=== PATIENT | male | born 1960 | race Caucasian/White ===

== ENCOUNTER 2022-05-28 09:21 | Inpatient (IN) | payer BC ==
[~2022-05-28] VITALS: Ht 182.9 cm; Wt 62.6 kg
[2022-05-28 09:24] VITALS: BP_SYST 115
--- NOTE | 2022-05-28 10:32 | NUR ---
Pt presents to the ER bib BLS from Home CC Pain to pelvic floor Pain scale10/10. AAOx4, skin intact, no swelling urinary retention and blood leakage from the penis. Suprapubic in place on 05/25/22 at [facility]. Bag non emptying at this time. PmHx HTN pelvic floor disfunction- Urologist Dr. Riley
--- NOTE | 2022-05-28 10:35 | NUR ---
Patient to ER bed 8 to gown for evaluation. Side rails up. Report given to GITA JOHNSTON.
--- NOTE | 2022-05-28 11:15 | NUR ---
Pt with pt bs for MSE.
--- NOTE | 2022-05-28 11:20 | NUR ---
JMAIE Workman at bedside examining patient.
[2022-05-28] MEDS ORDERED: DIAZEPAM 10 MG/2 ML DISP.SYRIN IM ONE (12:00)
[2022-05-28] MEDS ORDERED: DIAZEPAM 5 MG TABLET (VALIUM) PO ONE ×2 (12:15→14:00)
[2022-05-28] MEDS ORDERED: HYDROmorphone 1 MG/ML INJ. CARTRIDGE IVP ONE ×2 (12:15→14:45)
[2022-05-28 12:30] LABS: BASOPHILS % (AUTO) 0.7 % (0.0-2.0); EOSINOPHILS % (AUTO) 0.6 % (0.0-4.0); HEMATOCRIT 25.7 % (36-54); LYMPHOCYTES # (AUTO) 0.7 K/uL (1.0-5.5); LYMPHOCYTES % (AUTO) 25.6 % (20.5-51.5); MEAN CORPUSCULAR HEMOGLOBIN 19 pg (27-31); MEAN CORPUSCULAR HGB CONC 31 % (32-36); MEAN CORPUSCULAR VOLUME 60 fL (79.0-98.0); MONOCYTES # (AUTO) 0.2 K/uL (0.0-1.0); MONOCYTES % (AUTO) 7.4 % (1.7-9.3); NEUTROPHILS # (AUTO) 1.7 K/uL (1.8-7.7); NEUTROPHILS % (AUTO) 65.7 % (40.0-70.0); PLATELET COUNT (AUTO) 284 K/uL (130-430); RED CELL DISTRIBUTION WIDTH 20.9 % (9.0-15.0); WHITE BLOOD COUNT (AUTO) 2.6 K/uL (4.8-10.8)
[2022-05-28 12:48] LABS: ALANINE AMINOTRANSFERASE 15 U/L (12-78); ANION GAP 9 (5-15); ASPARTATE AMINOTRANSFERASE 25 U/L (10-37); CALCIUM 9.1 mg/dL (8.4-11.0); CHLORIDE 97 mmol/L (98-107); CREATININE 0.74 mg/dL (0.55-1.30); GLUCOSE 85 mg/dL (70-99); POTASSIUM 3.9 mmol/L (3.5-5.1); SODIUM SERUM 135 mmol/L (136-145); TOTAL BILIRUBIN 2.2 mg/dL (0.0-1.0); UREA NITROGEN, BLOOD 20 mg/dL (8-21)
[2022-05-28 12:50] LABS: GFR AFRICAN AMERICAN 138 mL/min (>90)
[2022-05-28 13:21] LABS: BILIRUBIN,URINE NEGATIVE (NEGATIVE); BLOOD, URINE 3+ (NEGATIVE); GLUCOSE,URINE NEGATIVE (NEGATIVE); KETONES,URINE 2+ (NEGATIVE); LEUKOCYTE ESTERASE ,URINE TRACE (NEGATIVE); NITRITE, URINE NEGATIVE (NEGATIVE); PROTEIN URINE 3+ (NEGATIVE)
[2022-05-28 13:24] LABS: CLARITY/URINE CLOUDY (CLEAR); COLOR,URINE RED (YELLOW)
[2022-05-28 13:28] LABS: BACTERIA,URINE FEW /HPF (None Seen); RBC,URINE >100 /HPF (0-3)
[2022-05-28 14:47] LABS: INR 1.1 (0.80-1.20); PROTHROMBIN TIME 11.2 SECS (9.5-12.5)
--- NOTE | 2022-05-28 15:06 | NUR ---
Medicated pt with IVP dilaudid 0.5mg. Pain level 10/10 to lower pelvic/abd region. Pt states that the pain is like any other he has had before and includes pressure like pain. Vital signs stable. Joselin Wood MSN RN
[2022-05-28] MEDS ORDERED: MUPIROCIN 2% TOPICAL OINTMENT 22 GM NS PRN (17:30)
[2022-05-28] MEDS ORDERED: MAGNESIUM SULFATE 50 ML IV PRN (17:30)
[2022-05-28] MEDS ORDERED: ZOLPIDEM TARTRATE 5 MG TABLET PO PRN (17:30)
[2022-05-28] MEDS ORDERED: DOCUSATE SODIUM 100 MG CAPSULE PO PRN (17:30)
[2022-05-28] MEDS ORDERED: POTASSIUM CHLORIDE 20 MEQ TAB.PRT.SR PO PRN (17:30)
[2022-05-28] MEDS ORDERED: ONDANSETRON HCL 4 MG/2 ML VIAL IVP PRN (17:30)
--- NOTE | 2022-05-28 17:49 | NUR ---
Pt states bladder distention feeling pressure in ears and pelvic floor. Bladder is tender to the touch. Pt states 6/10 pain scale. Pt states organs feel "balled up" Repositioned pt in bed and provided pillow and comfort towels.
--- NOTE | 2022-05-28 18:30 | NUR ---
Admit bed requested Patient will be admitted to care of . Admitted to Telemetry unit. Diagnosis Elevated troponin Inpatient (Yes or No) Y Observation (Yes or No) N Orientation concerns or request close to nursing station (Yes or No) Y Covid Status NEG On vent or bipap NO Isolation requirements NO Needs a sitter NO From Home (Yes or if No enter name of facility) YES Requires Dialysis (Yes or No) NO Med Rec Completed (Yes of No) NO
[2022-05-28] MEDS ORDERED: cefTRIAXone 1 GM VIAL ONE (18:50)
[2022-05-28] MEDS: MORPHINE 4 MG INJ. 4 MG/ML VIAL IVP PRN (20:34)
[2022-05-28] MEDS: cefTRIAXone 1 GM in D5W 50 ML IV SCH (20:37)
[2022-05-28] MEDS: LORazepam 2 MG/ML VIAL IVP PRN (20:40)
[2022-05-28] MEDS: NACL 0.9% 1,000 ML IV SCH (20:41)
--- NOTE | 2022-05-28 21:21 | NUR ---
ADMIT NOTE Received pt from ER to the floor with a diagnosis of ELEVATED TROPONIN. Admission process initiated. patient oriented to pain management, safety and call light-teach back done.
[2022-05-28 21:30] VITALS: BP_SYST 125
--- NOTE | 2022-05-28 23:00 | NUR ---
hgb8.0/hct25.7. Per parameter transfuse for hgb Addendum: 05/29/22 at 0759 by [facility] Two insulation installer Hgb 8.0/Hct 25.7, pt vs stable, sb on tele, denies any pain, suprapubic catheter draining with light cola color, no blood clots noted. Per parameter to transfuse 1prbc for hgb<7. Will closely monitor for bleeding.
[2022-05-29 00:56] VITALS: BP_SYST 134
[2022-05-29 04:05] LABS: BASOPHILS % (AUTO) 0.4 % (0.0-2.0); EOSINOPHILS # (AUTO) 0.1 K/uL (0.0-0.4); HEMOGLOBIN 7.2 g/dL (14.0-18.0); LYMPHOCYTES # (AUTO) 0.9 K/uL (1.0-5.5); LYMPHOCYTES % (AUTO) 31.4 % (20.5-51.5); MEAN CORPUSCULAR HEMOGLOBIN 19 pg (27-31); MEAN CORPUSCULAR HGB CONC 31 % (32-36); MEAN CORPUSCULAR VOLUME 60 fL (79.0-98.0); MONOCYTES # (AUTO) 0.2 K/uL (0.0-1.0); MONOCYTES % (AUTO) 8.3 % (1.7-9.3); NEUTROPHILS # (AUTO) 1.6 K/uL (1.8-7.7); NEUTROPHILS % (AUTO) 57.9 % (40.0-70.0); PLATELET COUNT (AUTO) 236 K/uL (130-430); RED BLOOD CELL COUNT(AUTO) 3.85 MIL/uL (4.2-6.2); WHITE BLOOD COUNT (AUTO) 2.8 K/uL (4.8-10.8)
--- NOTE | 2022-05-29 05:20 | NUR ---
PAGED PAGED DOCTOR Jamari HURT FOR CRITICAL
--- NOTE | 2022-05-29 05:33 | NUR ---
[address]ND PAGE FOR DR Jamari HURT
--- NOTE | 2022-05-29 05:43 | NUR ---
PAGED PAGED DOCTOR FORREST
--- NOTE | 2022-05-29 05:45 | NUR ---
[place] and spoke to Dr. Mcdonald. Informed with hgb 7.2/hct 23. vs stable, NSR to SB on tele, no acute distress noted. Order received to transfuse 1 PRBC. Supra pubic bag changed. catheter draining with light cola color urine with red sediments along the tubing.
--- NOTE | 2022-05-29 05:45 | NUR ---
Informed Dr. Mcdonald regarding tropnin 86.
--- NOTE | 2022-05-29 06:00 | NUR ---
Dr. Barrientos called back regarding consult. As per Marisa Botello, informed regarding troponin 86.
--- NOTE | 2022-05-29 06:15 | NUR ---
BT INITIATION: Consent signed BY Mr. Santiago agreeing to administration of blood. Blood has been type and crossmatched. Blood sent from blood bank. Information on unit of blood checked against patient wristband at bedside by two nurses verified by Marisa EASLEY. All information matches. Patient or responsible libertarian informed of potential complications associated with blood transfusion. Informed of possible transfusion reaction symptoms. Aware of need to notify nurse at once of itching, shortness of breath, flushing, feeling of impending doom, or other symptoms not previously present. Vital signs taken within 5 minutes prior to initiation of transfusion. RN will remain with patient for first 15 minutes of transfusion at which time vital signs will be re-assessed.
[2022-05-29] MEDS ORDERED: OXYB5TAB16 PO (07:02)
[2022-05-29] MEDS ORDERED: CYCL10TA24 PO (07:02)
[2022-05-29] MEDS ORDERED: LYR50 PO (07:02)
--- NOTE | 2022-05-29 07:42 | NUR ---
Report received from KAUSHAL Squires for continuity of care. Patient stable. No distress noted.
[2022-05-29 08:00] VITALS: BP_SYST 147
--- NOTE | 2022-05-29 09:06 | NUR ---
blood transfusion finished. Vital signs taken. Patient stable condition. Denies shortness of breath, itchiness, or skin discoloration. Will continue to monitor.
[2022-05-29] MEDS: NACL 0.9% 1,000 ML IV SCH ×2 (09:14→19:51)
[2022-05-29 09:27] VITALS: BP_SYST 138
--- NOTE | 2022-05-29 09:33 | NUR ---
Spoke with Dr. Mcdonald regarding Patient concerns. New orders noted and carried out. Dr. Maldonado, [facility], came to see patient.
[2022-05-29] MEDS ORDERED: DOCUSATE SODIUM 100 MG CAPSULE PO ONE (10:00)
[2022-05-29] MEDS ORDERED: PREGABALIN 25 MG CAPSULE (LYRICA) PO ONE (10:00)
[2022-05-29] MEDS ORDERED: OXYBUTYNIN CHLORIDE 5 MG TABLET PO ONE (10:00)
[2022-05-29 10:27] LABS: TOTAL IRON BIND. CAPACITY 377 ug/dL (250-450)
[2022-05-29] MEDS: CYCLOBENZAPRINE HCL 10 MG TABLET (FLEXERIL) PO PRN (11:11)
[2022-05-29 12:00] VITALS: BP_SYST 139
[2022-05-29 14:39] LABS: BASOPHILS % (AUTO) 0.3 % (0.0-2.0); EOSINOPHILS # (AUTO) 0.1 K/uL (0.0-0.4); EOSINOPHILS % (AUTO) 1.8 % (0.0-4.0); HEMATOCRIT 26.1 % (36-54); HEMOGLOBIN 8.1 g/dL (14.0-18.0); LYMPHOCYTES # (AUTO) 0.6 K/uL (1.0-5.5); LYMPHOCYTES % (AUTO) 18.2 % (20.5-51.5); MEAN CORPUSCULAR HEMOGLOBIN 20 pg (27-31); MEAN CORPUSCULAR HGB CONC 31 % (32-36); MONOCYTES # (AUTO) 0.2 K/uL (0.0-1.0); MONOCYTES % (AUTO) 5.6 % (1.7-9.3); NEUTROPHILS # (AUTO) 2.3 K/uL (1.8-7.7); NEUTROPHILS % (AUTO) 74.1 % (40.0-70.0); PLATELET COUNT (AUTO) 251 K/uL (130-430); RED BLOOD CELL COUNT(AUTO) 4.17 MIL/uL (4.2-6.2); RED CELL DISTRIBUTION WIDTH 23.7 % (9.0-15.0); WHITE BLOOD COUNT (AUTO) 3.1 K/uL (4.8-10.8)
[2022-05-29 14:44] LABS: MEAN CORPUSCULAR VOLUME 63 fL (79.0-98.0)
[2022-05-29 16:00] VITALS: BP_SYST 137
[2022-05-29] MEDS: cefTRIAXone 1 GM in D5W 50 ML IV SCH (19:00)
--- NOTE | 2022-05-29 20:02 | NUR ---
Report given to KAUSHAL Gurrola for continuity of care. Patient stable. Still NPO for procedure. No distress noted at this time.
[2022-05-29 20:32] VITALS: BP_SYST 131
[2022-05-29] MEDS: FERROUS SULFATE 325 MG TABLET.DR PO SCH ×2 (20:36→21:00)
[2022-05-29] MEDS: DOCUSATE SODIUM 100 MG CAPSULE PO SCH ×2 (20:37→21:00)
[2022-05-30 00:20] VITALS: BP_SYST 143
[2022-05-30] MEDS: MORPHINE 4 MG INJ. 4 MG/ML VIAL IVP PRN ×2 (00:57→12:35)
[2022-05-30] MEDS: CYCLOBENZAPRINE HCL 10 MG TABLET (FLEXERIL) PO PRN ×2 (01:48→11:15)
[2022-05-30 07:21] LABS: BASOPHILS % (AUTO) 0.5 % (0.0-2.0); EOSINOPHILS # (AUTO) 0.1 K/uL (0.0-0.4); EOSINOPHILS % (AUTO) 4.4 % (0.0-4.0); HEMATOCRIT 24.8 % (36-54); HEMOGLOBIN 7.8 g/dL (14.0-18.0); LYMPHOCYTES # (AUTO) 0.6 K/uL (1.0-5.5); LYMPHOCYTES % (AUTO) 23.4 % (20.5-51.5); MEAN CORPUSCULAR HEMOGLOBIN 20 pg (27-31); MEAN CORPUSCULAR HGB CONC 31 % (32-36); MEAN CORPUSCULAR VOLUME 63 fL (79.0-98.0); MONOCYTES # (AUTO) 0.3 K/uL (0.0-1.0); MONOCYTES % (AUTO) 10.2 % (1.7-9.3); NEUTROPHILS # (AUTO) 1.7 K/uL (1.8-7.7); NEUTROPHILS % (AUTO) 61.5 % (40.0-70.0); PLATELET COUNT (AUTO) 225 K/uL (130-430); RED BLOOD CELL COUNT(AUTO) 3.97 MIL/uL (4.2-6.2); WHITE BLOOD COUNT (AUTO) 2.8 K/uL (4.8-10.8)
--- NOTE | 2022-05-30 07:40 | NUR ---
OPEN NOTE Patient laying awake in bed. A/O x4 Welsh speaking. Patient has some complaints of bladder spasms. No Distress noted no shortness of breath. IV to LFA 20 gauge on SL. Patient has suprapubic cath draining yellow urine to gravity. All needs met, call light within reach. Safety checks in place. Will continue to monitor.
[2022-05-30 08:04] VITALS: BP_SYST 119
[2022-05-30 08:35] LABS: RED CELL DISTRIBUTION WIDTH 24.2 % (9.0-15.0)
--- NOTE | 2022-05-30 08:43 | NUR ---
MD REPORT Spoke with Dr. Anaya regarding Critical Troponin. MD stated he will be in to see the patient and to give him his schedule medications.
[2022-05-30] MEDS: FERROUS SULFATE 325 MG TABLET.DR PO SCH ×2 (08:57→23:09)
[2022-05-30] MEDS: PREGABALIN 25 MG CAPSULE (LYRICA) PO SCH (08:57)
[2022-05-30] MEDS: OXYBUTYNIN CHLORIDE 5 MG TABLET PO SCH (08:58)
[2022-05-30] MEDS: DOCUSATE SODIUM 100 MG CAPSULE PO SCH ×2 (08:58→23:08)
[2022-05-30] MEDS: NACL 0.9% 1,000 ML IV SCH (10:09)
[2022-05-30 12:05] VITALS: BP_SYST 120
--- NOTE | 2022-05-30 12:05 | NUR ---
Patient rounds. Patient in bed laying down. He is resting but complains of pelvic pain. Flexril was given as ordered by MD Anaya but still no reducation in pain. Morphine given through IVP to help with pain while we get in contact again with DR. Anaya. NO shortness of breath, No distress noted. Hernandez is attached and draining to gravity yellow urine. All needs met, safety measures in place. Will continue to monitor.
--- NOTE | 2022-05-30 12:28 | NUR ---
MD LOZOYA Placed a call to MD Anaya to explain that patient is still having pelvic spasms. wants us to call MD Stephen urologist at this time.
--- NOTE | 2022-05-30 12:38 | NUR ---
ATTENDING MD WEB CONTENT EDITOR DR Zoe DIGGS ORDERED TO NOTIFY UROLOGIST DR PEREZ THAT PT IS SUFFERING FROM PELVIC/BLADDER SPASM. LEFT A VOICE MESSAGE ON HIS CELL.
[2022-05-30] MEDS: LORazepam 2 MG/ML VIAL IVP PRN (13:38)
--- NOTE | 2022-05-30 15:54 | NUR ---
Patient rounds. Patient in bed laying down. He is asleep. NO shortness of breath, No distress noted. Hernandez is attached and draining to gravity yellow urine. All needs met, safety measures in place. Will continue to monitor.
--- NOTE | 2022-05-30 18:34 | NUR ---
CLOSING NOTE Patient resting in bed. No pain noted, No Distress noted no shortness of breath. IV to LFA 20 gauge on SL. Patient has suprapubic cath draining yellow urine to gravity. Collected about 300cc of urine All needs met, call light within reach. Safety checks in place. Will endorse to nightshift nurse.
[2022-05-30] MEDS: cefTRIAXone 1 GM in D5W 50 ML IV SCH (23:09)
[2022-05-31 00:48] VITALS: BP_SYST 131
[2022-05-31] MEDS: NACL 0.9% 1,000 ML IV SCH ×3 (03:55→17:43)
[2022-05-31 08:00] VITALS: BP_SYST 120
--- NOTE | 2022-05-31 08:00 | NUR ---
Initial notes Awake, alert, still complain of pain and spasm on his bladder refused pain medication and claimed that flexeril is not working. denies any shortness of breath. Enc to call for help as needed.
[2022-05-31] MEDS: OXYBUTYNIN CHLORIDE 5 MG TABLET PO SCH (08:18)
[2022-05-31] MEDS: CYCLOBENZAPRINE HCL 10 MG TABLET (FLEXERIL) PO PRN ×2 (08:19→18:57)
[2022-05-31] MEDS: PREGABALIN 25 MG CAPSULE (LYRICA) PO SCH (08:19)
[2022-05-31] MEDS: DOCUSATE SODIUM 100 MG CAPSULE PO SCH ×2 (08:19→20:43)
[2022-05-31] MEDS: FERROUS SULFATE 325 MG TABLET.DR PO SCH ×3 (08:20→20:43)
--- NOTE | 2022-05-31 09:00 | NUR ---
MD Rounds Seen by Dr. Anaya and PA of urologist.
[2022-05-31] MEDS ORDERED: DIATR MEGLU/DIATRIZ SOD 30 ML SOLUTION PO ONE (10:21)
[2022-05-31 12:00] VITALS: BP_SYST 129
--- NOTE | 2022-05-31 12:51 | NUR ---
PT- Pt ordered, per patient he is not walking for days and he feels weak and nt comfortable ambulating at this time. Addendum: 05/31/22 at 1731 by Nirali Temple RN physical therapy ordered
[2022-05-31] MEDS: LORazepam 2 MG/ML VIAL IVP PRN (14:05)
[2022-05-31 16:00] VITALS: BP_SYST 138
--- NOTE | 2022-05-31 17:31 | NUR ---
notes Catheter with yellow output, no bleeding noted.
[2022-05-31] MEDS: cefTRIAXone 1 GM in D5W 50 ML IV SCH (18:58)
[2022-05-31 20:40] VITALS: BP_SYST 141
[2022-06-01 00:05] VITALS: BP_SYST 135
[2022-06-01 08:39] VITALS: BP_SYST 135
[2022-06-01] MEDS ORDERED: FERR-69 PO (08:39)
[2022-06-01] MEDS: FERROUS SULFATE 325 MG TABLET.DR PO SCH (08:42)
[2022-06-01] MEDS: PREGABALIN 25 MG CAPSULE (LYRICA) PO SCH (08:42)
[2022-06-01] MEDS: OXYBUTYNIN CHLORIDE 5 MG TABLET PO SCH (08:43)
[2022-06-01] MEDS: DOCUSATE SODIUM 100 MG CAPSULE PO SCH (08:43)
[2022-06-01 09:24] VITALS: BP_SYST 135
--- NOTE | 2022-06-01 10:17 | NUR ---
PT DISCHARGED HOME. PT IS A/Kelli/TERRANCE4, NO DISTRESS NOTED. SUPRAPUBIC CATHETER INTACT, EMPTIED 200 ML YELLOW CLEAR URINE PRIOR TO DISCHARGE. DISCHARGE INSTRUCTIONS PROVIDED TO PT. ALL QUESTIONS AND CONCERNS ADDRESSED. ALL PT'S BELONGING TAKEN WITH HIM (LAP TOP WITH MANAGER OF OPERATIONS, CELL PHONE WITH MANAGER OF OPERATIONS, CLOTHES, TOILETRIES). Addendum: 06/01/22 at 1020 by [employer] internal corrosion specialist IV SITE ON LEFT FOREARM DISCONTINUED WITH CATHETER INTACT.
== END 2022-06-01 10:17 | disposition home or self-care (01) | DRG 698 ==
LOC: SED 09:21 → STU 14:36
PROVIDERS: ADMIT General Practice; ATTEND General Practice
PROC: 30233N1 Transfusion of Nonautologous Red Blood Cells into Peripheral Vein, Percutaneous Approach (ICD-10-PCS; principal; 2022-05-29)
DX: T83.090A Other mechanical complication of cystostomy catheter, initial encounter (principal); I21.A1 Myocardial infarction type 2; D62 Acute posthemorrhagic anemia; N39.0 Urinary tract infection, site not specified; Z20.822 Contact with and (suspected) exposure to COVID-19; R33.9 Retention of urine, unspecified; D50.9 Iron deficiency anemia, unspecified; Y73.8 Miscellaneous gastroenterology and urology devices associated with adverse incidents, not elsewhere classified; N32.89 Other specified disorders of bladder; Z88.5 Allergy status to narcotic agent; Z88.6 Allergy status to analgesic agent
CPT/HCPCS: 36415; 36430; 76376; 76700-TC; 76770; 80053; 81000; 82607; 82728; 82746; 83540; 83550; 83605; 83735; 84484; 85025; 85610-TC; 85730-TC; 86886; 86900; 86901; 86920; 87040; 87086; 93005; 93306; 96374; 96375; 96376; 99285; G0378; J0696; J1170; J2060; J2270; J7060; P9021; Q9964; Q9967

== ENCOUNTER 2022-06-02 21:09 | Emergency (ER) | payer BC ==
[~2022-06-02] VITALS: Ht 182.9 cm; Wt 73.5 kg
[~2022-06-02 21:09] MED LIST: CYCL10TA24 PO; FERR-69 PO; LYR50 PO; OXYB5TAB16 PO
[2022-06-02 21:27] VITALS: BP_SYST 127
--- NOTE | 2022-06-02 22:29 | NUR ---
Placed in room 07 . Placed on monitor tech, blood pressure machine and pulse oximeter. To gown for exam. Side rails up. Report given to hansa gasca
--- NOTE | 2022-06-02 22:40 | NUR ---
ER Dr. Brito at bedside examining patient.
--- NOTE | 2022-06-02 22:54 | NUR ---
PT BIBA WITH CC OF GENERALIZED ABODMINAL PAIN AND PELVIC PAIN, PT PRESENTS WITH SUPRAPUBIC PALACIO THAT WAS INSERTED BY [facility], AWARE. PT IN BED LOCKED IN LOW POSITION IN STABLE CONDITION, ON DELIVERER MERCHANDISE, VSS,NAD. WILL CONTINUE TO MONITOR.
[2022-06-02] MEDS ORDERED: LORazepam 2 MG/ML VIAL IM ONE (23:15)
--- NOTE | 2022-06-02 23:26 | NUR ---
Zeeshan good in ED - 06/03/22 at 0438 by [email or web address] PT INFORMED ABOUT PAUSING METFORMIN FOR 24HRS, BY SHOE PLANNER.
--- NOTE | 2022-06-03 00:50 | NUR ---
PATIENT REQUESTING PAIN MEDICATION. NOTIFIED. DR. AUSTIN AT BEDSIDE DISCUSSING POC.
[2022-06-03] MEDS ORDERED: HYDROmorphone 1 MG/ML INJ. CARTRIDGE IVP ONE (01:00)
[2022-06-03 01:28] LABS: CALCIUM 8.4 mg/dL (8.4-11.0); CREATININE 0.89 mg/dL (0.55-1.30); POTASSIUM 3.3 mmol/L (3.5-5.1)
[2022-06-03 01:32] LABS: ALBUMIN 3.3 g/dL (3.4-4.8); TOTAL BILIRUBIN 0.9 mg/dL (0.0-1.0)
[2022-06-03 02:15] LABS: BILIRUBIN,URINE NEGATIVE (NEGATIVE); BLOOD, URINE 3+ (NEGATIVE); CLARITY/URINE CLEAR (CLEAR); COLOR,URINE YELLOW (YELLOW); GLUCOSE,URINE NEGATIVE (NEGATIVE); KETONES,URINE NEGATIVE (NEGATIVE); LEUKOCYTE ESTERASE ,URINE NEGATIVE (NEGATIVE); NITRITE, URINE NEGATIVE (NEGATIVE); PROTEIN URINE 2+ (NEGATIVE)
[2022-06-03 03:19] LABS: BASOPHILS % (AUTO) 0.8 % (0.0-2.0); EOSINOPHILS # (AUTO) 0.2 K/uL (0.0-0.4); EOSINOPHILS % (AUTO) 7.7 % (0.0-4.0); HEMATOCRIT 25.1 % (36-54); HEMOGLOBIN 7.9 g/dL (14.0-18.0); LYMPHOCYTES # (AUTO) 0.6 K/uL (1.0-5.5); LYMPHOCYTES % (AUTO) 26.9 % (20.5-51.5); MEAN CORPUSCULAR HEMOGLOBIN 20 pg (27-31); MEAN CORPUSCULAR HGB CONC 32 % (32-36); MEAN CORPUSCULAR VOLUME 63 fL (79.0-98.0); MONOCYTES # (AUTO) 0.3 K/uL (0.0-1.0); MONOCYTES % (AUTO) 13.8 % (1.7-9.3); NEUTROPHILS # (AUTO) 1.1 K/uL (1.8-7.7); NEUTROPHILS % (AUTO) 50.8 % (40.0-70.0); PLATELET COUNT (AUTO) 174 K/uL (130-430); RED BLOOD CELL COUNT(AUTO) 3.99 MIL/uL (4.2-6.2); WHITE BLOOD COUNT (AUTO) 2.1 K/uL (4.8-10.8)
[2022-06-03 04:08] LABS: BACTERIA,URINE FEW /HPF (None Seen); RBC,URINE >100 /HPF (0-3); WBC,URINE 0-3 /HPF (0-3)
[2022-06-03 04:09] LABS: YEAST,URINE None Seen /HPF (None Seen)
[2022-06-03 04:10] LABS: MUCUS,URINE 1+ /LPF (None Seen)
--- NOTE | 2022-06-03 04:37 | NUR ---
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
--- NOTE | 2022-06-03 05:26 | NUR ---
PT PICKED UP BY FAMILY MEMBER, PT ENCOURAGED TO GET RX TODAY. PT IN STABLE CONDITION.
[2022-06-03 05:27] VITALS: BP_SYST 132
== END 2022-06-03 05:28 | disposition home or self-care (01) ==
LOC: SED 21:09
DX: R10.2 Pelvic and perineal pain (principal); Z88.5 Allergy status to narcotic agent; Z88.6 Allergy status to analgesic agent; Z79.899 Other long term (current) drug therapy
CPT/HCPCS: 99285; 96374; 80053; 81000; 83690; 85025; 87086; 36415; 93005; 96375; J2060; J1170